=== PATIENT | male | born 1960 | race Caucasian/White ===

== ENCOUNTER → 2017-04-15 | Outpatient (CLI) | payer OTHER | LOC: RAD 13:31 | DX: M54.5 Low back pain (principal); M54.2 Cervicalgia; M47.892 Other spondylosis, cervical region; M48.02 Spinal stenosis, cervical region; M48.06 Spinal stenosis, lumbar region; M46.06 Spinal enthesopathy, lumbar region | CPT/HCPCS: 72040; 72110 ==

== ENCOUNTER 2021-01-11 15:15 | Inpatient (IN) | payer OTHER ==
[~2021-01-11] VITALS: Ht 172.7 cm; Wt 90.7 kg
[~2021-01-11 15:15] MED LIST: NORCO 5-325 TA1 EACH PO; VIBRAMYCIN100 MG PO
[2021-01-11 17:18] LABS: HEMOGLOBIN 14.2 gm/dl (14.0-17.5); RED BLOOD COUNT 4.62 M/UL (4.20-5.50); WHITE BLOOD COUNT 4.9 K/UL (4.5-11.0)
[2021-01-11 17:42] LABS: BUN/CREATININE RATIO 17 (0-10)
[2021-01-11] MEDS ORDERED: MONTELUKAST SOD10 MG PO (19:56)
[2021-01-11] MEDS ORDERED: CLARITIN 10MG T10 MG PO (19:56)
[2021-01-11] MEDS ORDERED: AMLODIPINE BESY10 MG PO (19:56)
[2021-01-11] MEDS ORDERED: OMEPRAZOLE20 MG PO (19:57)
[2021-01-11] MEDS ORDERED: TAMSULOSIN HCL0.4 MG PO (19:57)
[2021-01-11] MEDS ORDERED: KLONOPIN TAB 00.5 MG PO (19:57)
[2021-01-11] MEDS ORDERED: ZETIA10 MG PO (19:57)
[2021-01-11] MEDS ORDERED: SERTRALINE HCL100 MG PO (19:57)
[2021-01-11] MEDS ORDERED: LEVOTHYROXINE75 MCG PO (19:58)
[2021-01-11] MEDS ORDERED: FLONASE 0.05% N16 GM (19:58)
[2021-01-11] MEDS ORDERED: MELOXICAM15 MG PO (19:58)
[2021-01-12 05:49] LABS: HEMOGLOBIN 13.5 gm/dl (14.0-17.5); RED BLOOD COUNT 4.33 M/UL (4.20-5.50); WHITE BLOOD COUNT 3.6 K/UL (4.5-11.0)
[2021-01-13 05:47] LABS: HEMOGLOBIN 13.6 gm/dl (14.0-17.5); RED BLOOD COUNT 4.39 M/UL (4.20-5.50)
[2021-01-13 05:54] LABS: WHITE BLOOD COUNT 7.9 K/UL (4.5-11.0)
[2021-01-14 06:18] LABS: BUN/CREATININE RATIO 25 (0-10)
[2021-01-15 04:46] LABS: HEMOGLOBIN 13.6 gm/dl (14.0-17.5); RED BLOOD COUNT 4.46 M/UL (4.20-5.50); WHITE BLOOD COUNT 7.8 K/UL (4.5-11.0)
[2021-01-15 05:23] LABS: BUN/CREATININE RATIO 29 (0-10)
[2021-01-16] MEDS ORDERED: COMBIVENT RESPIM4 GM INH (12:47)
[2021-01-16] MEDS ORDERED: MEDROL DOSEPAK 24 MG PO (12:47)
--- NOTE | 2021-01-16 16:50 | NUR ---
PT REFUSES THE FLU VACCINE
== END 2021-01-16 17:12 | disposition home or self-care (01) | DRG 177 ==
LOC: ER1 15:15 → CDU 18:43 → MED SURG 4 18:43
PROVIDERS: Emergency Medicine; Physician Assistant; ADMIT Internal Medicine
PROC: 8E0ZXY6 Isolation (ICD-10-PCS; principal; 2021-01-11)
PROC: XW033E5 Introduction of Remdesivir Anti-infective into Peripheral Vein, Percutaneous Approach, New Technology Group 5 (ICD-10-PCS; 2021-01-11)
DX: U07.1 COVID-19 (principal); J12.82 Pneumonia due to coronavirus disease 2019; J96.01 Acute respiratory failure with hypoxia; N17.9 Acute kidney failure, unspecified; R73.03 Prediabetes; R73.9 Hyperglycemia, unspecified; D69.59 Other secondary thrombocytopenia; J60 Coalworker's pneumoconiosis; I12.9 Hypertensive chronic kidney disease with stage 1 through stage 4 chronic kidney disease, or unspecified chronic kidney disease; N18.30 Chronic kidney disease, stage 3 unspecified; F41.9 Anxiety disorder, unspecified; N40.0 Benign prostatic hyperplasia without lower urinary tract symptoms; E78.5 Hyperlipidemia, unspecified; D72.819 Decreased white blood cell count, unspecified; R79.1 Abnormal coagulation profile; Z99.81 Dependence on supplemental oxygen; Z79.890 Hormone replacement therapy; Z79.899 Other long term (current) drug therapy
CPT/HCPCS: 36415; 36600; 71045; 71275; 80048; 80053; 81001; 82550; 82553; 82803; 83036; 83605; 83874; 84484; 85025; 85027; 85379; 85610; 86140; 86900; 86901; 87040; 87081; 87880; 93005; 94760; 96365; 96366; 96367; 96368; 96375; 99285; J0696; J1100; J1650; J2405; J7030; Q9967

== ENCOUNTER 2021-02-03 23:54 | Inpatient (IN) | payer OTHER ==
[~2021-02-03] VITALS: Ht 172.7 cm; Wt 89.8 kg
[~2021-02-03 23:54] MED LIST changes: +AMLODIPINE BESY10 MG PO; +CLARITIN 10MG T10 MG PO; +COMBIVENT RESPIM4 GM INH; +FLONASE 0.05% N16 GM; +KLONOPIN TAB 00.5 MG PO; +LEVOTHYROXINE75 MCG PO; +MEDROL DOSEPAK 24 MG PO; +MELOXICAM15 MG PO; +MONTELUKAST SOD10 MG PO; +OMEPRAZOLE20 MG PO; +SERTRALINE HCL100 MG PO; +TAMSULOSIN HCL0.4 MG PO; +ZETIA10 MG PO
[2021-02-04 06:46] LABS: HEMOGLOBIN 14.2 gm/dl (14.0-17.5); RED BLOOD COUNT 4.59 M/UL (4.20-5.50); WHITE BLOOD COUNT 12.9 K/UL (4.5-11.0)
[2021-02-04 07:19] LABS: BUN/CREATININE RATIO 14 (0-10)
[2021-02-04] MEDS ORDERED: LIDOCAINE PAIN1 EACH TP (11:48)
[2021-02-04] MEDS ORDERED: FISH OIL 1,0001 EACH PO (11:49)
[2021-02-04] MEDS ORDERED: ATORVASTATIN CA80 MG PO (11:49)
[2021-02-05 03:11] LABS: HEMOGLOBIN 12.8 gm/dl (14.0-17.5); RED BLOOD COUNT 4.15 M/UL (4.20-5.50); WHITE BLOOD COUNT 11.4 K/UL (4.5-11.0)
[2021-02-06 05:26] LABS: HEMOGLOBIN 11.6 gm/dl (14.0-17.5); RED BLOOD COUNT 3.79 M/UL (4.20-5.50)
[2021-02-06 05:38] LABS: WHITE BLOOD COUNT 8.2 K/UL (4.5-11.0)
[2021-02-07 02:29] LABS: HEMOGLOBIN 11.4 gm/dl (14.0-17.5); RED BLOOD COUNT 3.79 M/UL (4.20-5.50); WHITE BLOOD COUNT 8.5 K/UL (4.5-11.0)
[2021-02-07 02:49] LABS: BUN/CREATININE RATIO 16 (0-10)
[2021-02-08] MEDS ORDERED: ELIQUIS 5 MG TAB5 MG PO (12:00)
[2021-02-08] MEDS ORDERED: ELIQUIS5 MG PO (12:00)
[2021-02-08] MEDS ORDERED: OMNICEF 300 MG300 MG PO (12:00)
== END 2021-02-08 14:12 | disposition home or self-care (01) | DRG 175 ==
LOC: ER1 23:54 → CDU 02-04 10:53 → M/S 02-04 10:53
PROVIDERS: Emergency Medicine; Physician Assistant Medical; ADMIT Family Medicine
PROC: B24BYZZ Ultrasonography of Heart with Aorta using Other Contrast (ICD-10-PCS; principal; 2021-02-05)
DX: I26.99 Other pulmonary embolism without acute cor pulmonale (principal); J96.21 Acute and chronic respiratory failure with hypoxia; J15.9 Unspecified bacterial pneumonia; N17.9 Acute kidney failure, unspecified; Z86.16 Personal history of COVID-19; J60 Coalworker's pneumoconiosis; F41.9 Anxiety disorder, unspecified; E78.5 Hyperlipidemia, unspecified; N40.0 Benign prostatic hyperplasia without lower urinary tract symptoms; I12.9 Hypertensive chronic kidney disease with stage 1 through stage 4 chronic kidney disease, or unspecified chronic kidney disease; N18.30 Chronic kidney disease, stage 3 unspecified; D72.819 Decreased white blood cell count, unspecified; D69.6 Thrombocytopenia, unspecified; Z79.01 Long term (current) use of anticoagulants; Z99.81 Dependence on supplemental oxygen; Z85.6 Personal history of leukemia
CPT/HCPCS: ECHO; 36415; 36600; 71046; 80048; 80053; 81001; 82550; 82553; 82728; 82803; 83615; 83735; 84484; 85025; 85027; 85379; 85610; 85730; 87040; 93306; 93970; 94640; 94664; 94760; 96365; 96372; 96375; 96376; 99285; J1650; J1885; J2270; J2405; J2543; J3370; J7070; Q9967; U0002

== ENCOUNTER 2021-02-19 09:55 | Emergency (ER) | payer OTHER ==
[~2021-02-19 09:55] MED LIST changes: +ATORVASTATIN CA80 MG PO; +ELIQUIS 5 MG TAB5 MG PO; +ELIQUIS5 MG PO; +FISH OIL 1,0001 EACH PO; +LIDOCAINE PAIN1 EACH TP; +OMNICEF 300 MG300 MG PO
[2021-02-19 11:15] LABS: HEMOGLOBIN 14.6 gm/dl (14.0-17.5); RED BLOOD COUNT 4.82 M/UL (4.20-5.50)
[2021-02-19 11:49] LABS: BUN/CREATININE RATIO 13 (0-10)
[2021-02-19] MEDS ORDERED: DOXYCYCLINE HY100 M2 PO (15:13)
[2021-02-19] MEDS ORDERED: ELIQUIS5 MG PO (15:13)
== END 2021-02-19 15:30 | disposition home or self-care (01) ==
LOC: ER1 09:55
PROVIDERS: Nurse Practitioner
DX: R07.89 Other chest pain (principal); I26.99 Other pulmonary embolism without acute cor pulmonale; E78.5 Hyperlipidemia, unspecified; I10 Essential (primary) hypertension; Z90.89 Acquired absence of other organs; Z79.899 Other long term (current) drug therapy; Z79.01 Long term (current) use of anticoagulants
CPT/HCPCS: 71045; 80053; 82550; 82553; 83874; 84484; 85025; 85610; 93005; 99285